=== PATIENT | female | born 1930 | race Caucasian/White ===

== ENCOUNTER 2017-07-14 17:15 | Emergency (ER) | payer MEDICARE ==
[~2017-07-14] VITALS: Ht 162.6 cm; Wt 69.5 kg
[~2017-07-14 17:15] MED LIST: ASCO100089 PO; CALC-743 PO; ESTR1TAB28 PO; HYDR25TA4 PO; Iron PO; K20 PO; VITE PO
[2017-07-14 17:24] VITALS: BP 154/55; PULSE 71; RESP 18; O2SAT 96
--- NOTE | 2017-07-14 17:39 | ED.REPORT ---
HPI-Chest Pain 40 and Over Date of Service Jul 14, 2017 ED Provider: Ulysses Dee MD Pt is an otherwise healthy 87 year old female who presents to the ED complaining of chest paint onset 1-2 hours ago that woke her from a nap. She reports she has had increased activity in the past week including ripping piles of papers. Her pain is worse with L arm movement, does not radiate, and is not worse with inspiration. Pt denies SOB, diaphoresis, nausea, or any other symptoms. She denies a hx of HTN, DM, CAD, DVT, PE, or any other medical conditions. She does not take any prescription medications. Nursing Notes Stated Complaint: CHEST PAIN Chief Complaint: Chest Pain Nursing Notes Reviewed: Yes Allergies: Coded Allergies: Lettuce (Verified Allergy, Intermediate, Nausea,Vomiting,Diarrhea, 07/14/17 ) codeine (Verified Allergy, Unknown, 07/14/17) colchicine (Verified Allergy, Unknown, 12/04/12) lisinopril (Verified Allergy, Unknown, 07/14/17) Uncoded Allergies: shellfish, shrimp (Allergy, Severe, Anaphylaxis, 12/04/12) Scheduled ([Iron]) 27 MG PO DAILY Ascorbic Acid-Expunged Drug, Do Not Renew! (Vitamin C-Expunged Drug, Do Not Renew!) 1,000 Mg Tab.chew 1,000 MG PO DAILY Thien Carb/Vitamin D3-Expunged, Do Not Renew! (Calcium 500 + Vit D 200-Expunged, Do Not Kee) 1 Each Tablet 1 EACH PO DAILY Estradiol-Expunged Drug, Do Not Renew! (Estrace-Expunged Drug, Do Not Renew!) 1 Mg Tablet 1 MG PO DAILY Hydrochlorothiazide-Expunged, Do Not Renew! (Hydrochlorothiazide-Expunged, Do Not Renew!) 25 Mg Tablet 25 MG PO DAILY Potassium Chl-Expunged Drug, Do Not Renew! (I-Whn-Dohsruvs Drug, Do Not Renew!) 20 Meq Tab.er.prt 20 MEQ PO DAILY Tocopherol-Expunged Drug, Do Not Renew! (Vitamin E-Expunged Drug, Do Not Renew! ) 400 Unit Cap 400 UNIT PO DAILY General Time Seen by MD: 17:37 Chief Complaint Chest pain Hx Obtained From: Patient Arrived By: Walk-in Sudden in Onset?: Yes Onset Occurred: 1 - 4 hours ago Symptom Duration: Since onset Location: : Chest left Quality: Painful Radiation: : Does not radiate Context Related History: Denies: Congestive heart failure, Diabetes mellitus, Hypertension Recent Healthcare: No recent hospitalization, Recent doctor visit Similar Sx Previous: No Risk Factors )( CAD Risk Stratification No Cocaine, No Diabetes mellitus, No Hypertension, No Known CAD Risk factors reviewed )( TAD Risk Stratification No Aortic valve disease, No High intensity wt lifting, No Hypertension, No Risk factors reviewed )( PE Risk Stratification No Coagulation Disorder, No , No , No Trauma Risk factors reviewed Past Medical History Past Medical History Steroid shots Heartburn UTI Arthritis Scoliosis Past Surgical History Reports: Cataract surgery, Cholecystectomy, Hysterectomy Smoking History Former Smoker Social History Lives with her grandson Other Social History: Good social support Ambulatory Status Independent Review of Systems Respiratory: Denies: Shortness of breath Cardiovascular: Reports: Chest pain GI: Denies: Nausea Skin: Denies Diaphoresis Complete sys rev & neg: except as marked. Physical Exam Initial Vital Signs Vital Signs (First) Date Time Temp Pulse Resp B/P Pulse Ox O2 Delivery O2 Flow Rate FiO2 07/14/17 17:24 37.0 71 18 154/55 96 Room Air Initial VS: Reviewed General/Constitutional: Awake, Alert, No acute distress Respiratory / Chest: Atraumatic, Breath sounds NL, Breath sounds = bilat, No respiratory distress Tenderness to the left chest wall Cardiovascular: Heart rate NL, Regular rhythm, Heart sounds NL Abdomen: Atraumatic, Soft, Non-tender Neck: Atraumatic, Supple, Full range of motion Back: Atraumatic, Inspection NL, Full range of motion Lower Extremity / Pelvis / MS: Atraumatic, Inspection NL, Full range of motion Skin: Atraumatic, Color NL, No rash, Warm, Dry Neurologic: Oriented X3, Speech NL, No motor deficits, No sensory deficits Head / Eyes: Atraumatic, Normocephalic, PERRL, EOMI ENT: Atraumatic, Airway patent, Mucous membranes moist Upper Extremity / MS: Atraumatic, Inspection NL, Full range of motion Interpretation & Diagnostics Lab Results Interpretation Result Diagram: 07/14/17 1750 07/14/17 1750 Test 07/14/17 17:50 White Blood Count 7.5th/mm3 (3.8-10.1) Red Blood Count 4.65mil/mm3 (3.90-5.20) Hemoglobin 14.8g/dL (12.0-15.6) Hematocrit 41.4% (35.0-46.0) Mean Corpuscular Volume 89.0fL (81-100) Mean Corpuscular Hemoglobin 31.8pg (27.0-35.0) Mean Corpuscular Hemoglobin Concent 35.7% (32.0-37.0) Red Cell Distribution Width 12.6% (12.3-15.4) Platelet Count 243bil/L (150-400) Neutrophils (%) (Auto) 41.3% (40-74) Lymphocytes (%) (Auto) 43.8% (14-46) Monocytes (%) (Auto) 11.5% (4-12) Eosinophils (%) (Auto) 2.9% (0-5) Basophils (%) (Auto) 0.4% (0-3) Sodium Level 141mEq/L (134-144) Potassium Level 3.6mEq/L (3.5-5.2) Chloride Level 103mEq/L (97-108) Carbon Dioxide Level 24mmol/L (18-29) Blood Urea Nitrogen 18mg/dL (8-27) Creatinine 0.51mg/dL (0.57-1.00) Estimat Glomerular Filtration Rate 164mL/min (>59) Glucose Level 94mg/dL (60-99) Calcium Level 9.3mg/dL (8.5-10.1) Magnesium Level 1.7mg/dL (1.6-2.6) Total Bilirubin 0.4mg/dL (0.0-1.2) Aspartate Amino Transf (AST/SGOT) 44U/L (0-50) Alanine Aminotransferase (ALT/SGPT) 40U/L (0-32) Alkaline Phosphatase 64U/L (25-165) Troponin T < 0.010ug/L (0.0-0.011) Total Protein 6.5g/dL (6.4-8.4) Albumin 3.8g/dL (3.4-5.0) Hold Castellanos Top Tube Received (Received) ECG Interpretation ECG Interpretation: Sinus rhythm rate 68 Time: 17:27 Interpreted by: ED physician X-Ray Chest Interpretation Chest Xray Interpretation: IMPRESSION: No acute cardiopulmonary disease. Dictated by: Angelia Kong M.D. on 07/14/2017 at 17:51 Approved by: Angelia Kong M.D. on 07/14/2017 at 17:51 View: Portable, 1 view Interpretation / Wet Read by: Interpret - Radiologist Re-Eval/Medical Decision Source of Hx: Old records Time of Eval: 18:20 Re-Evaluation/Progress Note: Pt rechecked. Discussed all results. Informed pt of plan for discharge. Pt understands and agrees with plan. F/U instructions and RTER warnings given. All questions addressed. Counseled Regarding: Diagnosis, Lab results, Need for follow-up, When/why to return to ED Discharge & Departure Primary Impression: Chest pain Chest pain type: unspecified Qualified Code: R07.9 - Chest pain, unspecified Disposition: Home Discharge Condition All VS Reviewed: Yes Condition: Stable Patient Instructions: Chest Pain (ED) Additional Instructions: I believe that the pain you are experiencing is related to the extra work you have done over the past few days. I see no evidence of heart attack or any other dangerous chest condition at this time. I recommended Tylenol as needed for pain and follow-up in a week if symptoms are not improved. Follow-up right away if you develop new or worsening symptoms such as fainting, severe persistent chest pain at rest, high fever or breathlessness. Referrals: Clark Brock MD (PCP) Scribe Attestation Portions of this note were transcribed by Ángela Springer and Pranay Mosher. I, Dr. Dee personally performed the history, physical exam and medical decision-making; I reviewed and confirmed the accuracy of the information in the transcribed note. copies to: Clark Brock MD, Kirk H MD Jul 14, 2017 17:39 Ángela Springer Jul 14, 2017 18:11 PRANAY MOSHER Jul 14, 2017 18:46
--- NOTE | 2017-07-14 17:52 | DRSVH ---
PROCEDURE: X-RAY CHEST ONE VIEW, PORTABLE ([id number]) INDICATIONS: pain TECHNIQUE: One view of the chest was acquired. COMPARISON: [facility], , CHEST 1VW (PORTABLE), 12/04/2012, 16:15. FINDINGS: Surgical changes and devices: None. Lungs and pleura: No pleural effusions or pneumothorax. Lungs are clear. Mediastinum: Mediastinal contours appear normal. Heart size is normal. Bones and chest wall: Scoliosis. Bilateral shoulder joint degeneration. No suspicious bony lesions. Overlying soft tissues appear unremarkable. IMPRESSION: No acute cardiopulmonary disease. Dictated by: Angelia Kong M.D. on 07/14/2017 at 17:51 Approved by: Angelia Kong M.D. on 07/14/2017 at 17:51
[2017-07-14 17:57] LABS: BASOPHILS % (AUTO) 0.4 % (0-3); EOSINOPHILS % (AUTO) 2.9 % (0-5); MONOCYTES % (AUTO) 11.5 % (4-12); Mean Corpuscular Hemoglobin 31.8 pg (27.0-35.0); NEUTROPHILS % (AUTO) 41.3 % (40-74); Platelet Count 243 bil/L (150-400)
[2017-07-14 18:16] LABS: TROPONIN T < 0.010 ug/L (0.0-0.011)
[2017-07-14 18:26] LABS: Magnesium 1.7 mg/dL (1.6-2.6)
[2017-07-14 18:40] VITALS: BP 151/65; PULSE 71; RESP 18; O2SAT 99
== END 2017-07-14 18:43 | disposition home or self-care (01) ==
LOC: SED 17:15
DX: R07.89 Other chest pain (principal); Z87.440 Personal history of urinary (tract) infections; Z87.891 Personal history of nicotine dependence; Z88.5 Allergy status to narcotic agent; Z88.8 Allergy status to other drugs, medicaments and biological substances